=== PATIENT | female | born 1990 | race Caucasian/White ===

== ENCOUNTER 2016-03-01 19:54 | Emergency (ER) | payer OTHER, MEDICAID ==
[2016-03-01 20:20] VITALS: BP 119/57; PULSE 87; TEMP 98.6; BMI 33.0
[2016-03-01] MEDS ORDERED: SODIUM CHLORIDE 0.9% 3 ML FLUSH FLUSH PRN (21:25)
--- NOTE | 2016-03-01 21:50 | EDPRACDOC ---
- General Information Chief Complaint: Abdominal Pain Stated Complaint: LOWER ABD PAIN 18WKS PREG. & DC Time Seen by Provider: 03/01/16 21:06 Information Source: Patient Mode Of Arrival: Car Home Medications: Home Medications Acetaminophen [Mapap] 500 mg PO Q6-8H PRN 03/01/16 Acetaminophen/Diphenhydramine [Tylenol Pm Ex-Strength Caplet] 1 tab PO QHS PRN 03/01/16 Nitrofurantoin [Macrobid] 100 mg PO BID #14 capsule 03/01/16 Phenazopyridine [Pyridium] 100 mg PO TID #14 tab 03/01/16 Vits W-Ca,Fe,FA(<1Mg) [ Vitamins] 1 tab PO DAILY 03/01/16 Allergies/Adverse Reactions: Allergies Allergy/AdvReac Type Severity Reaction Status Date / Time amoxicillin [Amoxicillin] Allergy Intermediate Edema-Gener Verified 12/10/15 23: 56 alized - History of Present Illness Onset: 2 days HPI: PT PRESENTS WITH RLQ ABDOMINAL PAIN FOR THE LAST TWO DAYS. SHE IS 18 WEEKS . DENIES N/V, FEVER, OR CHANGE IN STOOL PATTERN. Pain Location: Reports: RLQ Pain Context: Reports: Spontaneous Pain Severity: Moderate Pain Quality: Reports: Sharp Pain Radiation: Reports: No Radiation Last Menstrual Period: : Yes : 1 Para: 0 Abortus: 0 Blood Type: Unknown Female Associated Signs & Symptoms: Reports: Vaginal Discharge (STABLE CLEAR DISCHARGE). Denies: Nausea, Vaginal Bleeding, Vomiting, Fever Oral Intake: Normal Urinary Output: Normal ED Past Medical History - History Reviewed Yes Nurses notes reviewed and agree except as marked - Patient Medical History Respiratory History: Reports: Asthma Psychological History: Denies: Depression Systemic History: Denies: Cancer Surgical History: Denies: Hysterectomy - Social Medical History Smoking Status: Former smoker Lives In: Home EDM Review of Systems - Review of Systems ROS Negative Except as Marked: Yes All systems reviewed and were negative except as marked Constitutional: negative: Fever Respiratory: negative: Shortness of Breath Cardiovascular: negative: Chest Pain Gastrointestinal: Pain. negative: Constipation, Diarrhea, Nausea, Vomiting Genitourinary: , Vaginal Discharge (STABLE CLEAR). negative: Dysuria, Vaginal Bleeding - Physical Exam Constitutional: Alert Oriented to: Time, Person, Place Last recorded Vital Signs: Last Vital Signs Temp 98.6 F 03/01/16 20:16 Pulse 87 03/01/16 20:16 Resp 20 03/01/16 20:16 BP 119/57 L 03/01/16 20:16 Pulse Ox 98 03/01/16 20:16 Oxygen Pulse Oxygen Saturation 98 O2 Device Room Air Oxygen Flow Rate Fraction of Inspired Oxygen ( FIO2) - HEENT Head: negative: Deformity, Laceration Eye Exam: negative: Conjunctival Injection, Pale Conjunctiva Oropharynx: negative: Membranes Dry Nose: negative: Congestion, Discharge Neck: negative: Limited ROM - Respiratory/Cardiovascular Respiratory: Normal - CTA. negative: Accessory Muscle Use, Diminished, Tachypnea Cardiovascular: negative: Bradycardia, Tachycardia, Irregular - GI Auscultation: Normal Palpation: Normal Tenderness: Mild, Guarding, RLQ. negative: Rebound, Rigidity - Musculoskeletal Extremities: Radial Pulse (PALPABLE) - Integumentary Skin: Warm, Dry. negative: Rash - Neurologic Memory Impaired: Normal Motor Function: Normal Mood Description: Anxious, Appropriate Thought: Coherent Perception: Normal - Re-evaluation Re-evaluation 1 Re-evaluation Time: 22:32 SPOKE WITH PATIENT ABOUT FINDINGS AND FURTHER IMAGING TO RULE OUT APPENDICITIS. SHE WOULD LIKE TO FOREGO IMAGING AT THIS TIME BECAUSE OF RADIATION RISK TO BABY. SHE IS ADVISED TO RETURN IF SHE IS NOT IMPROVING FOR FURTHER IMAGING. WILL TREAT UTI. - Results 03/01/16 21:45 03/01/16 21:45 WBC 11.8 xk/uL (3.8-10.8) H 03/01/16 21:45 RBC 3.92 xM/uL (4.20-5.40) L 03/01/16 21:45 Hgb 12.5 g/dL (12.0-16.0) 03/01/16 21:45 Hct 36.5 % (36-47) 03/01/16 21:45 MCV 93 fL (81-99) 03/01/16 21:45 MCH 31.9 pg (27-32) 03/01/16 21:45 MCHC 34.2 g/dl (33-36) 03/01/16 21:45 RDW 13.0 % (11.5-14.5) 03/01/16 21:45 Plt Count 268 xk/uL (130-400) 03/01/16 21:45 MPV 8.3 fL (7.4-10.4) 03/01/16 21:45 Neut % (Auto) 80.0 % (45-76) H 03/01/16 21:45 Lymph % (Auto) 14.2 % (17-44) L 03/01/16 21:45 [place] % (Auto) 5.2 % (3-10) 03/01/16 21:45 Eos % (Auto) 0.3 % (0-5) 03/01/16 21:45 Baso % (Auto) 0.3 % (0-2) 03/01/16 21:45 Absolute Neuts (auto) 9.44 xk/uL (1.7-8.2) H 03/01/16 21:45 Absolute Lymphs (auto) 1.65 xk/uL (0.65-4.75) 03/01/16 21:45 Sodium 139 mEq/L (137-146) 03/01/16 21:45 Potassium 4.0 mEq/L (3.5-5.1) 03/01/16 21:45 Chloride 104 mEq/L (98-107) 03/01/16 21:45 Carbon Dioxide 24 mMOL/L (22-33) 03/01/16 21:45 Anion Gap 15 mEq/L (8-16) 03/01/16 21:45 BUN 5 MG/DL (7-17) L 03/01/16 21:45 Creatinine 0.50 MG/DL (0.52-1.04) L 03/01/16 21:45 Estimated GFR (MDRD) > 60 mL/min (>=60) 03/01/16 21:45 Glucose 79 MG/DL (70-99) 03/01/16 21:45 Calculated Osmolality 264 MOs/Kg (270-290) L 03/01/16 21:45 Calcium 9.4 MG/DL (8.4-10.2) 03/01/16 21:45 Corrected Calcium 9.6 MG/DL (8.4-10.2) 03/01/16 21:45 Total Bilirubin 0.4 MG/DL (0.2-1.3) 03/01/16 21:45 AST 20 IU/L (14-36) 03/01/16 21:45 ALT 31 IU/L (9-52) 03/01/16 21:45 Alkaline Phosphatase 78 IU/L (38-126) 03/01/16 21:45 Total Protein 6.8 G/DL (6.3-8.2) 03/01/16 21:45 Albumin 3.8 G/DL (3.5-5.0) 03/01/16 21:45 Urine Color Yellow 03/01/16 20:20 Urine Clarity Sl hzy 03/01/16 20:20 Urine pH 7.0 (5.0-8.0) 03/01/16 20:20 Ur Specific [place] 1.010 03/01/16 20:20 Urine Protein 1+ (NEG/TRACE) H 03/01/16 20:20 Urine Glucose (UA) Neg (NEGATIVE) 03/01/16 20:20 Urine Ketones Neg (NEGATIVE) 03/01/16 20:20 Urine Occult Blood Neg (NEG/TRACE) 03/01/16 20:20 Urine Nitrite Neg (NEGATIVE) 03/01/16 20:20 Urine Bilirubin Neg (NEGATIVE) 03/01/16 20:20 Urine Urobilinogen 0.2 MG/DL (0-1) 03/01/16 20:20 Ur Leukocyte Esterase 1+ (NEGATIVE) H 03/01/16 20:20 Urine WBC 2-5 (0-5) 03/01/16 20:20 Ur Epithelial Cells 3+ 03/01/16 20:20 Urine Bacteria 3+ (NEG/FEW) H 03/01/16 20:20 Urine Mucus Occ (NEG/OCC) 03/01/16 20:20 Lab Results 03/01/16 03/01/16 03/01/16 21:45 21:45 20:20 WBC 11.8 H RBC 3.92 L Hgb 12.5 Hct 36.5 MCV 93 MCH 31.9 MCHC 34.2 RDW 13.0 Plt Count 268 MPV 8.3 Neut % (Auto) 80.0 H Lymph % (Auto) 14.2 L [place] % (Auto) 5.2 Eos % (Auto) 0.3 Baso % (Auto) 0.3 Absolute Neuts (auto) 9.44 H Absolute Lymphs (auto) 1.65 Sodium 139 Potassium 4.0 Chloride 104 Carbon Dioxide 24 Anion Gap 15 BUN 5 L Creatinine 0.50 L Estimated GFR (MDRD) > 60 Glucose 79 Calculated Osmolality 264 L Calcium 9.4 Corrected Calcium 9.6 Total Bilirubin 0.4 AST 20 ALT 31 Alkaline Phosphatase 78 Total Protein 6.8 Albumin 3.8 Urine Color Yellow Urine Clarity Sl hzy Urine pH 7.0 Ur Specific [place] 1.010 Urine Protein 1+ H Urine Glucose (UA) Neg Urine Ketones Neg Urine Occult Blood Neg Urine Nitrite Neg Urine Bilirubin Neg Urine Urobilinogen 0.2 Ur Leukocyte Esterase 1+ H Urine WBC 2-5 Ur Epithelial Cells 3+ Urine Bacteria 3+ H Urine Mucus Occ Decision Time to Discharge: 22:33 - Departure Yes I personally saw and evaluated the patient. Disposition: Home Condition: Stable Final Diagnosis: UTI (urinary tract infection) Qualifiers: Urinary tract infection type: acute cystitis Hematuria presence: without hematuria Qualified Code(s): N30.00 - Acute cystitis without hematuria Instructions: Urinary Tract Infection in Women (ED), Appendicitis (GEN) Education/Counseling Given To: Patient, Family Member Education/Counseling Given Regarding: Diagnosis, Treatment, Prognosis, Follow Up Referrals: Jorge Moreno MD [Primary Care Provider] - Call for Appointment Prescriptions: Nitrofurantoin [Macrobid] 100 mg PO BID #14 capsule Phenazopyridine [Pyridium] 100 mg PO TID #14 tab
[2016-03-01 21:57] LABS: AUTOMATED BASOPHIL 0.3 % (0-2); AUTOMATED EOSINOPHIL 0.3 % (0-5); AUTOMATED LYMPH 14.2 % (17-44); AUTOMATED MONOCYTE 5.2 % (3-10); MPV 8.3 fL (7.4-10.4)
[2016-03-01 22:05] LABS: BLOOD UREA NITROGEN 5 MG/DL (7-17); CALC CORRECTED 9.6 MG/DL (8.4-10.2); CALCIUM 9.4 MG/DL (8.4-10.2); CALCULATED OSMOLALITY 264 MOs/Kg (270-290); CHLORIDE 104 mEq/L (98-107); GLUCOSE 79 MG/DL (70-99); SODIUM LEVEL 139 mEq/L (137-146); TOTAL PROTEIN 6.8 G/DL (6.3-8.2)
--- NOTE | 2016-03-01 22:11 | DIRPT ---
CLINICAL DATA: 25-year-old female with right lower quadrant abdominal pain EXAM: LIMITED ABDOMINAL ULTRASOUND TECHNIQUE: Mattson scale imaging of the right lower quadrant was performed to evaluate for suspected appendicitis. Standard imaging planes and graded compression technique were utilized. COMPARISON: None. FINDINGS: The appendix is not visualized. Ancillary findings: None. Factors affecting image quality: None. IMPRESSION: Nonvisualization of the appendix. No inflammatory changes, free fluid, or adenopathy noted in the visualized right lower quadrant. Note: Non-visualization of appendix by US does not definitely exclude appendicitis. If there is sufficient clinical concern, consider abdomen pelvis CT with contrast for further evaluation. Electronically Signed By: Juan Jose Pacheco M.D. On: 03/01/2016 22:08
[2016-03-01 22:15] LABS: LEUKOCYTES/URINE 1+ (NEGATIVE); NITRITE/URINE NEG (NEGATIVE); URINE OCCULT BLOOD NEG (NEG/TRACE)
[2016-03-01] MEDS ORDERED: PHENAZOPYRIDINE 100 MG TAB PO ONE (22:30)
[2016-03-01] MEDS ORDERED: NITROFURANTOIN 100 MG CAP PO ONE (22:30)
[2016-03-01] MEDS ORDERED: ACETAMINOPHEN 325 MG/TAB TABLET PO ONE (22:34)
[2016-03-02] MEDS ORDERED: SODIUM CHLORIDE 0.9% 3 ML FLUSH FLUSH SCH (06:00)
== END 2016-03-01 23:00 | disposition home or self-care (01) ==
LOC: ED 19:54
DX: N30.00 Acute cystitis without hematuria (principal)
CPT/HCPCS: 36415; 76705; 80053; 81001; 85025; 99283; J3490